=== PATIENT | female | born 1980 | race African-American/Black ===

== ENCOUNTER 2019-11-11 02:51 | Emergency (ER) | payer BC ==
[2019-11-11] MEDS ORDERED: Cyclobenzaprine 10 MG Tab PO ONE (02:52)
[2019-11-11] MEDS ORDERED: Acetaminophen 500 MG Tab PO ONE (03:08)
[2019-11-11] MEDS ORDERED: Ibuprofen 800 MG Tab PO ONE (03:08)
--- NOTE | 2019-11-11 03:14 | EDM.PDOC ---
ED HPI GENERAL MEDICAL PROBLEM - General Stated Complaint: PAIN;NECK DOWN Time Seen by Provider: 11/11/19 03:20 Source of Information: Reports: Patient History Limitations: Reports: No Limitations - History of Present Illness INITIAL COMMENTS - FREE TEXT/NARRATIVE: Patient prsented to the ED because of generalized body ache: neck, shoulder,hip and knees. There is no cough or cpld, fever or chills. No N/V/D. Patient was evaluated at the [facility] in [place] yesterday and apparently all her labs came back ok. Neck, shoulders, lower back & bilat knees Pain Score (Numeric/FACES): 6 - Related Data Allergies Allergy/AdvReac Type Severity Reaction Status Date / Time No Known Allergies Allergy Verified 11/11/19 03:22 Home Meds: Home Meds Cyclobenzaprine [Flexeril] 10 mg PO TID PRN #30 tab 11/11/19 [Rx] Ibuprofen 800 mg PO TID PRN #30 tablet 11/11/19 [Rx] ED ROS GENERAL - Review of Systems Review Of Systems: See Below Constitutional: Reports: No Symptoms HEENT: Reports: No Symptoms Respiratory: Reports: No Symptoms Cardiovascular: Reports: No Symptoms Endocrine: Reports: No Symptoms GI/Abdominal: Reports: No Symptoms : Reports: No Symptoms Musculoskeletal: Reports: Neck Pain, Shoulder Pain, Joint Pain Skin: Reports: No Symptoms, Cyanosis, Jaundice ED EXAM, GENERAL - Physical Exam Exam: See Below Exam Limited By: No Limitations General Appearance: Alert, No Apparent Distress Ears: Normal External Exam, Normal Canal, Hearing Grossly Normal Nose: Normal Inspection, Normal Mucosa, No Blood Throat/Mouth: Normal Inspection, Normal Lips, Normal Teeth Head: Atraumatic, Normocephalic Neck: Normal Inspection, Supple, Non-Tender, Full Range of Motion Respiratory/Chest: No Respiratory Distress, Lungs Clear, Normal Breath Sounds Cardiovascular: Normal Peripheral Pulses, Regular Rate, Rhythm, No Edema GI/Abdominal: Normal Bowel Sounds, Soft, Non-Tender, No Organomegaly Extremities: Normal Inspection, Normal Range of Motion, Non-Tender Neurological: Alert, Oriented, CN II-XII Intact Psychiatric: Normal Affect Course - Vital Signs Text/Narrative:: Ibuprofen 800 mg with tylenol 1000 mg po x1 Flexeril 10 mg po x1 Last Recorded V/S: Last Vital Signs Temp 36.4 C 11/11/19 03:15 Pulse 60 11/11/19 03:40 Resp 18 11/11/19 03:40 BP 132/82 11/11/19 03:40 Pulse Ox 100 11/11/19 03:40 - Orders/Labs/Meds Meds: Medications Discontinued Medications Generic Name Dose Route Start Last Admin Trade Name Freq PRN Reason Stop Dose Admin Acetaminophen 1,000 mg 11/11/19 03:08 11/11/19 03:23 Tylenol Extra Strength PO 11/11/19 03:09 1,000 mg ONETIME ONE Administration Ibuprofen 800 mg 11/11/19 03:08 11/11/19 03:23 Motrin PO 11/11/19 03:09 800 mg ONETIME ONE Administration Departure - Departure Time of Disposition: 03:45 Disposition: Home, Self-Care 01 Condition: Good Clinical Impression: Musculoskeletal strain - Discharge Information Prescriptions: Cyclobenzaprine [Flexeril] 10 mg PO TID PRN #30 tab PRN Reason: Muscle Spasm Ibuprofen 800 mg PO TID PRN #30 tablet PRN Reason: Pain Instructions: Cyclobenzaprine tablets, Ibuprofen tablets and capsules, Muscle Strain, [id number] Referrals: PCP,Not In Area [Primary Care Provider] - Forms: ED Department Discharge, ED Return to Work/School Form Additional Instructions: Please read discharge instructions on musculoskeletal strain Take the following medications all at the same time for better pain relief: Flexeril 10mg, Ibuprofen 800 mg, tylenol 1000 mg every 8 hours as as needed for muscle spasm and pain Follow up as needed No work until November 12 Sepsis Event Note (ED) - Focused Exam Vital Signs: Vital Signs Temp Pulse Resp BP Pulse Ox 11/11/19 03:40 60 18 132/82 100 11/11/19 03:15 36.4 C 71 18 108/77 100
== END 2019-11-11 03:55 | disposition home or self-care (01) ==
LOC: FB.ED 02:51
DX: S16.1XXA Strain of muscle, fascia and tendon at neck level, initial encounter (principal); S46.912A Strain of unspecified muscle, fascia and tendon at shoulder and upper arm level, left arm, initial encounter; S46.911A Strain of unspecified muscle, fascia and tendon at shoulder and upper arm level, right arm, initial encounter; S86.812A Strain of other muscle(s) and tendon(s) at lower leg level, left leg, initial encounter; S86.811A Strain of other muscle(s) and tendon(s) at lower leg level, right leg, initial encounter; S39.012A Strain of muscle, fascia and tendon of lower back, initial encounter; Z79.899 Other long term (current) drug therapy; X58.XXXA Exposure to other specified factors, initial encounter
CPT/HCPCS: 99283; A9270